=== PATIENT | female | born 1935 | race Caucasian/White ===

== ENCOUNTER → 2020-02-29 | Day surgery (SDC) | payer MEDICARE, BC ==
[~2020-02-29] VITALS: Ht 152.4 cm; Wt 82.7 kg
[~2020-02-29] MED LIST: AMLO-257 PO; ASPI-1111 PO; EZET10TA13 PO; FentaNYL CITRATE-PF 100 MCG/2 ML VIAL IVP ONE; FentaNYL CITRATE-PF 100 MCG/2 ML VIAL ONE; HEPARIN SODIUM 1000 UNITS/NS 1,000 ML IARTER ONE; HEPARIN SODIUM 1000 UNITS/NS 1,000 ML ONE; HEPARIN SODIUM,PORCINE 5,000 UNITS/ML VIAL IVP ONE; IODIXANOL 320 MG/ML 150 ML VIAL IARTER ONE; IODIXANOL 320 MG/ML 150 ML VIAL ONE; IOHEXOL 300 MG/ML 150 ML VIAL IARTER ONE; IOHEXOL 300 MG/ML 150 ML VIAL ONE; LEVO88TA4 PO; LIDOCAINE 1% 30 ML/SOD BICARB 8.4% 4 ML SQ ONE; METO-558 PO; MIDAZOLAM HCL 2 MG/2 ML VIAL IVP ONE; MIDAZOLAM HCL 2 MG/2 ML VIAL ONE; NITROGLYCERIN 50 MG/D5% WATER 250 ML ONE; NITROGLYCERIN/D5W 50 MG/250 ML IV BOTTLE ICOR ONE; SACU1TAB4 PO; SODIUM BICARBONATE 50 MEQ/50 ML VIAL ONE; SODIUM CHLORIDE 0.9% 1,000 ML IV ONE; SODIUM CHLORIDE 0.9% 500 ML IV ONE; VERAPAMIL HCL 2.5 MG/ML 2 ML VIAL ONE
[2020-02-29 08:34] LABS: COVID AG,FIA SOURCE NASOPHARYNGEAL
[2020-02-29 08:42] LABS: EOSINOPHILS % (AUTO) 4.2 % (1.0-6.0); HEMOGLOBIN 14.1 g/dL (12.0-16.0); LYMPHOCYTES # (AUTO) 1.7 K/uL (1.0-4.8); LYMPHOCYTES % (AUTO) 24.6 % (22.0-44.0); MEAN CORPUSCULAR HEMOGLOBIN 27.2 pg (26.0-34.0); MEAN CORPUSCULAR HGB CONC 32.8 G/dL (31.0-37.0); MEAN CORPUSCULAR VOLUME 83 fL (80-100); MONOCYTES # (AUTO) 0.7 K/uL (0.1-1.0); MONOCYTES % (AUTO) 9.8 % (2.0-9.0); NEUTROPHILS # (AUTO) 4.3 K/uL (1.8-7.7); NEUTROPHILS % (AUTO) 60.4 % (40.0-70.0); PLATELET COUNT (AUTO) 264 K/uL (150-450); RED BLOOD CELL COUNT(AUTO) 5.18 MIL/uL (4.00-5.20); RED CELL DISTRIBUTION WIDTH 14.6 % (11.5-14.5)
[2020-02-29 08:44] LABS: CALCIUM, TOTAL 10.1 mg/dL (8.8-10.5); CREATININE 1.16 mg/dL (0.60-1.30); POTASSIUM 4.6 mmol/L (3.5-5.1)
[2020-02-29 08:50] LABS: ALBUMIN 4.1 g/dL (3.4-5.0); BILIRUBIN,TOTAL 0.4 mg/dL (0.1-1.0); TOTAL PROTEIN, SERUM 8.2 g/dL (6.4-8.2)
[2020-02-29 08:55] LABS: PROTHROMBIN TIME 10.1 SEC (9.4-11.6)
[2020-02-29 10:29] VITALS: BP 177/82
[2020-02-29 13:11] VITALS: BP 108/71
== END | disposition home or self-care (01) ==
LOC: CATHLAB 07:59
PROVIDERS: ATTEND Internal Medicine Cardiovascular Disease
DX: I70.203 Unspecified atherosclerosis of native arteries of extremities, bilateral legs (principal); I25.10 Atherosclerotic heart disease of native coronary artery without angina pectoris; I42.8 Other cardiomyopathies; E78.2 Mixed hyperlipidemia; E78.00 Pure hypercholesterolemia, unspecified; I11.0 Hypertensive heart disease with heart failure; I50.22 Chronic systolic (congestive) heart failure; Z95.5 Presence of coronary angioplasty implant and graft; Z79.899 Other long term (current) drug therapy; Z98.890 Other specified postprocedural states
CPT/HCPCS: 36415; 37227; 37229; 75630; 80053; 85025; 85610; 85730; 87426; 93005; 99152; 99153; C1714; C1725; C1760; C1769; C1874; C1887; C9803; J1644; J2250; J3010; J3490 ×2; Q9967; 36200; 37205; 75716; 75962